=== PATIENT | male | born 1955 | race Caucasian/White ===

== ENCOUNTER 2016-06-02 08:11 | Inpatient (IN) | payer BC, OTHER ==
[2016-06-02] VITALS (12 sets, daily range): BP systolic 112–140; BP diastolic 68–82
[~2016-06-02] VITALS: Ht 180.3 cm; Wt 89.8 kg
--- NOTE | ~2016-06-02 | EXE ---
[facility] [address] [address] STRESS ECHOCARDIOGRAM Name: AUBREY SINHA Room #: 210-P ADM IN M.R.#: [id number] Admission: 06/02/16 Attend Phys: Avinash Ramirez Discharge: Date of : 53 Date of Service: 06/02/16 1418 Report #: [id number] THIS REPORT FOR: //name// APPROVED REPORT Exam: Stress Echocardiogram Reason for Exam: Chest pain Patient Location: Echo lab Stress Nurse: Arline Jett RN Room #: 210 HR: 52 bpm Medical History Allergies: No known drug allergies Cardiac Risk Factors: FHX of CAD Procedure The patient underwent an Exercise Stress Test using the Enzo Protocol. Blood pressure, heart rate, and EKG were monitored. An Echocardiogram was performed by meteorological technician in four stages in quad fashion. At peak stress, four selected images were obtained and placed side by side with resting images for comparison. Echo Enhancing Agent Indication: Endocardial border delineation Agent/Amount Used: Definity 4.00 cc Testing Details Test: Exercise stress testing was performed using a Enzo protocol. HR Resting HR: 52 bpm Max Heart Rate (APMHR): 158 bpm Max HR Achieved: 169 bpm Target HR (85% APMHR): 134 bpm % of APMHR: 106 Recovery HR: 84 bpm HR response to stress: Normal HR response to stress BP Resting BP: 138/80 mmHg Max BP: 180/80 mmHg Recovery BP: 160/78 mmHg ECG Resting ECG: Sinus Rhythm [facility] [address] [place] [address] STRESS ECHOCARDIOGRAM Name: AUBREY SINHA Room #: 210-P [facility] IN ..#: [id number] Admission: 06/02/16 Attend Phys: Avinash Ramirez Discharge: Date of : 53 Date of Service: 06/02/16 1418 Report #: [id number] Stress ECG: Anterior CT pattern ST Change: ST Elevation Arrhythmia: VPC's Recovery ECG: Sinus Rhythm Clinical Reason for Termination: Maximal effort Stress Symptoms: Chest pain Exercise duration: 9 min Exercise capacity: 10.4 METs Overall Exercise Capacity for Age: Normal Stress ECG Conclusion 1. Maximal stress test markedly positive for ischemia with development of anteroseptal and inferior injury pattern. 2. Echocardiocardiographic images very limited and non-diagnostic despite Definity administration. Pre-Stress Echo The resting Echocardiogram showed normal left ventricular contractility with an estimated Ejection Fraction of about >55%. Post-Stress Echo The stress Echocardiogram showed abnormal left ventricular contractility with an estimated Ejection Fraction of about 30-35%. Very limited post-imaging windows Conclusion Clinical Response: Ischemic Stress ECG Response: Ischemic Stress Echo Images: Indeterminant No prior study available for comparison. Other Information Study Quality: Fair Critical Notification Critical Value: Yes Physician Notified Date: 06/02/2016 Physician Name:Los Richardson M.D. <ELECTRONICALLY SIGNED> By: Zackary Richardson MD, [facility] 06/02/16 1418 1418 1418 Zackary Richardson MD, FAC /INF
--- NOTE | ~2016-06-02 | EKG ---
[address] [address] [place] [address] ELECTROCARDIOGRAM REPORT Name: AUBREY SINHA Room #: [facility] M..#: [id number] Admission: Attend Phys: Discharge: Date of : 53 Report #: [id number] THIS REPORT FOR: //name// 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
--- NOTE | ~2016-06-02 | EKG ---
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 : 1955 Requested By: Zackary Richardson Order Number: [id number] MD: Zackary Richardson Measurements Intervals [place] Rate: 63 P: 22 SD: 165 QRS: 35 QRSD: 95 T: 91 QT: 429 QTc: 440 Interpretive Statements Sinus rhythm Abnrm T, consider ischemia, anterolateral lds Compared to ECG 06/02/2016 08:23:17 No significant changes Electronically Signed On 06-04-2016 8:10:33 CDT by Zackary Richardson [email or web address] <ELECTRONICALLY SIGNED> By: Zackary Richardson MD, [facility] 06/04/16 0810 0647 0647 Zackary Richardson MD, [facility] /EPI
--- NOTE | ~2016-06-02 | EKG ---
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 : 1955 Requested By: Zackary Richardson Order Number: [id number] MD: Zackary Richardson Measurements Intervals [place] Rate: 65 P: 34 WV: 168 QRS: 28 QRSD: 95 T: 62 QT: 385 QTc: 401 Interpretive Statements Sinus rhythm Borderline T abnormalities, lateral leads Baseline wander in lead(s) V1,V3 Compared to ECG 06/02/2016 08:23:17 anterior T wave abnormality is less prominent Electronically Signed On 06-03-2016 8:31:23 CDT by Zackary Richardson [email or web address] <ELECTRONICALLY SIGNED> By: Zackary Richardson MD, FACC 06/03/16 0831 1406 1406 Zackary Richardson MD, [facility] /EPI
--- NOTE | ~2016-06-02 | 2DMMODE ---
[facility] [place] [address] 2 D/M-MODE ECHOCARDIOGRAM Name: AUBREY SINHA Room #: 210-P ADM IN M.R.#: [id number] Admission: 06/02/16 Attend Phys: Avinash Ramirez Discharge: Date of : 53 Date of Service: 06/02/16 1143 Report #: [id number] THIS REPORT FOR: //name// APPROVED REPORT Study performed: 06/02/2016 11:06:36 EXAM: Comprehensive 2D, Doppler, and color-flow Echocardiogram Patient Location: In-Patient Room #: 210 Blood Pressure: 138/80 mmHg HR: 55 bpm Other Information Study Quality: Good Indications Chest Pain 2D Dimensions RVDd: 39.86 mm LVEF(%): 51.81 (>50%) IVSd: 9.96 (7-11mm) LVOT Diam: 25.36 (18-24mm) LVDd: 56.70 mm PWd: 10.01 (7-11mm) Ascending Ao: 31.92 (22-36mm) LVDs: 41.46 (25-40mm) Aortic Root: 30.70 mm IVC: 22.00 mm Hood's LVEF: 51.81 % Volumes Left Atrial Volume (Systole) Single Plane 4CH: 44.32 mL Single Plane 2CH: 38.74 mL LA ESV Index: 21.00 mL/m2 Aortic Valve AoV Peak Jv.: 1.25 m/s AO Peak Gr.: 6.25 mmHg LVOT Max P.83 mmHg LVOT Max V: 0.98 m/s Mitral Valve E/A Ratio: 0.7 MV Decel. Time: 244.81 ms MV E Max Jv.: 0.45 m/s [facility] [place] [address] 2 D/M-MODE ECHOCARDIOGRAM Name: AUBREY SINHA Room #: 210-P [facility] IN M.R.#: [id number] Admission: 06/02/16 Attend Phys: Avinash Ramirez Discharge: Date of : 53 Date of Service: 06/02/16 1143 Report #: [id number] A Jv.: 0.66 m/s MV PHT: 70.99 ms Pulmonary Valve PV Peak Jv.: 0.81 m/s PV Peak Gr.: 2.62 mmHg Pulmonary Vein P Vein S: 68.1 m/s P Vein D: 35.8 m/s P Vein A Dur.: 25.7 m/s Tricuspid Valve RAP Estimate: 10.00 mmHg Left Ventricle The left ventricle is normal size. Cannot rule out hypokinesis of distal septum at apex. There is normal left ventricular wall thickness. The left ventricular systolic function is normal. The left ventricular ejection fraction is within the normal range. LVEF is 50-55%. Grade I - abnormal relaxation pattern. Right Ventricle The right ventricle is normal size. The right ventricular systolic function is normal. Atria The left atrium size is normal. The right atrium size is normal. Aortic Valve The aortic valve is normal in structure. Mild aortic regurgitation. There is no aortic valvular stenosis. Mitral Valve The mitral valve is normal in structure. No mitral regurgitation. No evidence of mitral valve stenosis. Tricuspid Valve The tricuspid valve is normal in structure. There is no tricuspid valve regurgitation noted. Pulmonic Valve The pulmonary valve is normal in structure. Trace pulmonic regurgitation. Great Vessels The aortic root is normal in size. IVC is dilated and collapses [facility] [address] [place] [address] 2 D/M-MODE ECHOCARDIOGRAM Name: AUBREY SINHA Room #: 210-P [facility] IN M.R.#: [id number] Admission: 06/02/16 Attend Phys: Avinash Ramirez Discharge: Date of : 53 Date of Service: 06/02/16 1143 Report #: [id number] >50% with inspiration. Pericardium There is no pericardial effusion. <Conclusion> The left ventricular ejection fraction is within the normal range. Cannot rule out hypokinesis of distal septum at apex. EF 55% Grade I - abnormal relaxation pattern. The aortic valve is normal in structure. Mild aortic regurgitation. The mitral valve is normal in structure. No mitral regurgitation. Pulmonary artery pressure could not be reliably ascertained. There is no pericardial effusion. <ELECTRONICALLY SIGNED> By: Zackary Richardson MD, FACC 06/02/16 1143 1143 1143 Zackary Richardson MD, FACC /INF
--- NOTE | ~2016-06-02 | D ---
[facility] [place] [address] DISCHARGE SUMMARY Name: RICK SINHA Room #: 210-P [facility] IN M.R.#: [id number] Admission: 06/02/16 Attend Phys: Rick Soler MD Discharge: 06/04/16 Date of : 53 Report #: [id number] THIS REPORT FOR: //name// CC: Rick Soler DATE OF SERVICE: 06/04/2016 FINAL DIAGNOSES: 1. Coronary artery disease. 2. Non-ST segment elevation myocardial infarction. PROCEDURES: 1. Treadmill stress test. 2. Cardiac catheterization. HOSPITAL COURSE: The patient was admitted with chest pain. Initial cardiac enzyme was negative. He was taken to this cardiac lab and stress test was performed. He developed ischemia on EKG and the procedure was stopped. Dr. Richardson diagnosed him with a non-Q wave ND. He was taken to the senior label specialist and a stent was placed across a proximal left anterior descending 75-95% stenosis just prior to the first septal perforating branch. There was some scattered disease in the circumflex, right coronary artery and posterior descending artery. As mentioned, 1 stent was placed. His left ventricular function was normal. He was placed on medical treatment thereafter and followed another 48 hours. He had no other interval complication. PHYSICAL EXAMINATION: GENERAL: On the day of discharge, he was awake and alert. VITAL SIGNS: Stable. He was up and walking the halls with no incident. LUNGS: Clear. HEART: Regular. ABDOMEN: Soft. EXTREMITIES: Showed no edema. DISPOSITION: To be discharged to home with cardiac diet and activity as tolerated. Follow up with Dr. Richardson in 3 weeks. Follow up with me in 6 weeks. MEDICATIONS: Will be metoprolol XL 50 mg a day, Lipitor 40 mg a day, lisinopril 10 mg a day, aspirin 325 mg a day, Effient 10 mg daily, allopurinol 300 mg daily and Tylenol as needed. <ELECTRONICALLY SIGNED> By: Rick Soler MD 06/05/16 0830 1054 1348 Rick Soler MD /nt
--- NOTE | ~2016-06-02 | H ---
[facility] [place] [address] HISTORY AND PHYSICAL Name: RICK SINHA Room #: 210-P ADM IN M.R.#: [id number] Admission: 06/02/16 Attend Phys: Rick Soler MD Discharge: Date of : 53 Report #: [id number] THIS REPORT FOR: //name// CC: Rick Soler DATE OF SERVICE: 06/02/2016 CHIEF COMPLAINT: Chest pain. HISTORY OF PRESENT ILLNESS: The patient is a 61-year-old gentleman who presented to the emergency room with chest pain. He said symptoms were sent substernal in nature and recurring off and on this morning. Even with some of exertion, he had some pain that radiated up to the top of his chest, but really nothing down his arms. He denied any shortness of breath or GI symptoms. PAST MEDICAL HISTORY: Gout and arthritis. PAST SURGICAL HISTORY: None. FAMILY HISTORY: Both of his parents had heart disease and are . His mother was diabetic. She had coronary disease. SOCIAL HISTORY: No smoking history. He does admit to daily alcohol use. ALLERGIES: None. MEDICATIONS: Allopurinol. REVIEW OF SYSTEMS: He denies headache, shortness of breath, abdominal pain, nausea, vomiting, diarrhea, constipation, dysuria or syncope. PHYSICAL EXAMINATION: VITAL SIGNS: Temperature 36.8, pulse 74, respirations 19, blood pressure 140/77 and O2 sat 96% on room air. GENERAL: He is awake and alert, lying on the stretcher in no distress. HEAD AND NECK: Unremarkable. LUNGS: Clear. HEART: Regular. ABDOMEN: Soft. Normoactive bowel sounds. EXTREMITIES: No edema. He has some joint deformity and swelling of the metacarpophalangeal joints on the hands. NEUROLOGIC: He is alert and oriented and intact. LABORATORY DATA: Lab review was unremarkable including negative troponin. Chest x-ray was negative and EKG showed sinus rhythm with nonspecific anterior [facility] [address] [place] [address] HISTORY AND PHYSICAL Name: RICK SINHA Room #: 210-P [facility] IN [facility].#: [id number] Admission: 06/02/16 Attend Phys: Rick Soler MD Discharge: Date of : 53 Report #: [id number] T-wave changes. ASSESSMENT: 1. Chest pain. 2. Osteoarthritis. 3. History of gout. PLAN: I have asked Dr. Richardson to see him in consultation and consider stress testing. Other home medications to continue. I will add an aspirin. If stable and negative workup, then anticipate early discharge. <ELECTRONICALLY SIGNED> By: Rick Soler MD 06/02/16 1459 1012 1030 Rick Soler MD /nt
--- NOTE | ~2016-06-02 | CATHLAB ---
[facility] [address] [employer] [address] INVASIVE PROCEDURE REPORT Name: AUBREY SINHA Room #: 210-P [facility] IN ..#: [id number] Admission: 06/02/16 Attend Phys: Avinash Ramirez Discharge: Date of : 53 Date of Service: 06/02/16 1407 Report #: [id number] THIS REPORT FOR: //name// CC: Aubrey Soler PROCEDURE: Left heart coronary angiography, angioplasty and stenting of the LAD. INDICATIONS: Non-Q-wave myocardial infarction. DESCRIPTION OF PROCEDURE: The potential benefits and risks of the procedure were discussed at length with the patient who understood. Full written and informed consent was obtained. The patient was brought into the catheterization suite where his right groin was prepped and draped in a sterile fashion. He was sedated with intravenous Versed. A 1% Xylocaine was used as local anesthetic. A 6-Mexican sheath was placed in the right femoral artery by the modified Seldinger technique. Left heart catheterization was performed with a 6-Mexican angled pigtail catheter. A single plain ventriculogram was performed in the PABLO view. Pullback gradients were measured across the aortic valve. Selective coronary angiography was performed with a 6-Mexican left and right 4 cm Carlos coronary catheter. All diagnostic catheters removed. Attention was turned to a subtotal narrowing within the proximal LAD. Heparin bolus was administered as well as a single bolus of Integrilin. He received aspirin and a loading dose 60 mg of Effient. A 6-Mexican EBU 3.5 Launcher guide catheter was placed over a wire with its tip at the ostium of the left main. A 0.014 inch Luge wire was used to traverse the proximal LAD stenosis, which was then predilated with a 2.5 x 20 mm Euphora balloon, which was inflated at 12 atmospheres for 25 seconds. This is a second inflation more proximally at 14 atmospheres for 30 seconds. This balloon was removed and the long proximal LAD stenosis was stented with a 3.0 x 34 mm Resolute medicated stent. Stent position confirmed and then deployed at 30 seconds at 16 atmospheres. The deploying balloon was removed and the stent was postdilated with a 3.25 x 15 mm NC Trek balloon, which was inflated on multiple occasions within the length of this upwards of 22 atmospheres. Additional images were obtained, all catheters removed. Hand injection was performed to the right groin sheath with placement of a Mynx device upon removal of the sheath. The patient remained in excellent condition at the conclusion of the procedure with good right groin hemostasis and intact distal pulses. RESULTS: Left heart hemodynamics: 1. Left ventricular systolic pressure of 130. 2. Left ventricular end diastolic pressure of 18. 3. Aortic valve, no gradient was present on pullback across the aortic valve, central aortic pressure of 134/76. [facility] [address] [place] [address] INVASIVE PROCEDURE REPORT Name: AUBREY SINHA Room #: 210-P [facility] IN M.R.#: [id number] Admission: 06/02/16 Attend Phys: Avinash Ramirez Discharge: Date of : 53 Date of Service: 06/02/16 1407 Report #: [id number] ANGIOGRAPHY: Left ventriculogram: Ventriculography demonstrated normal global left ventricular systolic function with minimal hypokinesis involving the inferior apex. Mitral regurgitation was absent. The ejection fraction was estimated at 60%. SELECTIVE CORONARY ANGIOGRAPHY: 1. Left main: Left main was normal. 2. Left anterior descending: Left anterior descending exhibited a variable 75-95% stenosis all before the first septal perforating branch. There was a tubular 60% stenosis just after the first septal perforating branch. 3. Circumflex: The circumflex was large, but nondominant. The circumflex gave rise to 2 marginal branches. The first marginal branch exhibited a proximal 50-60% stenosis. Second marginal branch, which was larger exhibited mild plaquing. 4. Right coronary: Right coronary was large and dominant. The right coronary exhibited mild 20-30% proximal plaquing. 5. Posterior descending: The posterior descending was moderately large and exhibited a 50-60% proximal stenosis. This will be followed closely. POSTANGIOPLASTY AND STENTING: The proximal LAD was ballooned and then stented with a 3.0 x 34 mm Resolute medicated stent postdilated close to 3.5 mm with a noncompliant balloon. A 0% residual stenosis remained with DYLON 3 flow maintained in the vessel. SUMMARY: 1. Normal global systolic function with minimal inferoapical hypokinesis, ejection fraction 60%. 2. Normal left main. 3. Severe, long proximal LAD stenosis successfully stented with a 3.0 x 34 mm Resolute medicated stent. 4. The circumflex was large, but nondominant. The first marginal branch exhibited a 50-60% stenosis. 5. The right coronary was dominant with mild proximal plaquing. There is a 50-60% proximal stenosis in the moderately large posterior descending branch. By: 1407 0708 Zackary Richardson MD, FACC /nt
[2016-06-02 08:50] LABS: HEMATOCRIT 45.2 % (42.0-52.0); HEMOGLOBIN 15.8 gm/dL (14.0-18.0); MCH 34.5 pg (26.0-34.0); MCV 98.4 fL (80.0-100.0); PLATELET COUNT 196 thou/uL (150-400); RBC 4.59 mil/uL (4.50-6.00); RDW 13.1 % (10.5-14.5); WBC 4.9 thou/uL (4.0-11.0)
[2016-06-02 08:56] LABS: MANUAL DIFF YES
[2016-06-02 09:01] LABS: ANION GAP 7 mmol/L (7-16); BUN 7 mg/dL (7-18); CALCIUM 8.4 mg/dL (8.5-10.1); CHLORIDE 105 mmol/L (98-107); CO2 27 mmol/L (21-32); CREATININE 0.8 mg/dL (0.7-1.3); GLUCOSE 112 mg/dL (74-106); POTASSIUM 4.1 mmol/L (3.5-5.1); SODIUM 139 mmol/L (136-145)
[2016-06-02 09:08] LABS: TROPONIN-I < 0.04 ng/mL (<0.04-0.07)
[2016-06-02 09:29] LABS: ABSOLUTE NEUTROPHILS 2.8 thou/uL (1.4-8.2); TOTAL CELL COUNT 100
[2016-06-02] MEDS ORDERED: ALLOPURINOL 30300 M2 PO (09:32)
[2016-06-02] MEDS ORDERED: INDOMETHACIN 5050 M1 (11:15)
[2016-06-02 13:33] LABS: CHOLESTEROL 169 mg/dL (<200); HDL CHOLESTEROL 48 mg/dL (>40); LDL CHOLESTEROL 95 mg/dL (<100); TC:HDL 3.5 Ratio (Not establshd); TRIGLYCERIDE 130 mg/dL (<150); VLDL 26 mg/dL (<40)
[2016-06-03 00:22] VITALS: BP 112/55
[2016-06-03 03:16] LABS: HEMOGLOBIN 14.6 gm/dL (14.0-18.0); MCH 34.6 pg (26.0-34.0); MCHC 34.7 g/dL (28.0-37.0); MCV 99.8 fL (80.0-100.0); RBC 4.2 mil/uL (4.50-6.00); RDW 13.1 % (10.5-14.5); WBC 6.6 thou/uL (4.0-11.0)
[2016-06-03 03:34] LABS: CALCIUM 8.3 mg/dL (8.5-10.1); POTASSIUM 3.6 mmol/L (3.5-5.1); TROPONIN-I 0.54 ng/mL (<0.04-0.07)
[2016-06-03 03:45] VITALS: BP 123/50
[2016-06-03 07:12] VITALS: BP 126/73
[2016-06-03] MEDS ORDERED: EFFIENT10 MG PO (08:01)
[2016-06-03 11:00] VITALS: BP 119/60
[2016-06-03 15:50] VITALS: BP 99/50
[2016-06-03 19:49] VITALS: BP 96/56
[2016-06-04 03:55] VITALS: BP 104/66
[2016-06-04 07:30] VITALS: BP 114/65
[2016-06-04] MEDS ORDERED: EFFIENT10 MG PO (07:30)
[2016-06-04] MEDS ORDERED: ASPIRIN325 PO (07:30)
[2016-06-04] MEDS ORDERED: BENAZEPRIL HCL10 MG PO (07:30)
[2016-06-04] MEDS ORDERED: METOPROLOL SUCC50 MG PO (07:30)
[2016-06-04] MEDS ORDERED: LIPITOR40 MG PO (07:30)
[2016-06-04 11:13] VITALS: BP 114/65
[2016-06-04 12:39] VITALS: BP 114/65
== END 2016-06-04 12:25 | disposition home or self-care (01) | DRG 247 ==
LOC: ER 08:11 → 2N 09:21 → EROBS 09:21 → 2N 10:02
PROVIDERS: Emergency Medicine; Internal Medicine; Nurse Practitioner Gerontology
PROC: B2111ZZ Fluoroscopy of Multiple Coronary Arteries using Low Osmolar Contrast (ICD-10-PCS; principal; 2016-06-02)
PROC: 4A023N7 Measurement of Cardiac Sampling and Pressure, Left Heart, Percutaneous Approach (ICD-10-PCS; principal; 2016-06-02)
PROC: 027035Z Dilation of Coronary Artery, One Artery with Two Drug-eluting Intraluminal Devices, Percutaneous Approach (ICD-10-PCS; principal; 2016-06-02)
PROC: B2151ZZ Fluoroscopy of Left Heart using Low Osmolar Contrast (ICD-10-PCS; principal; 2016-06-02)
DX: I21.4 Non-ST elevation (NSTEMI) myocardial infarction (principal); I25.10 Atherosclerotic heart disease of native coronary artery without angina pectoris; I25.5 Ischemic cardiomyopathy; I10 Essential (primary) hypertension; E78.5 Hyperlipidemia, unspecified; F10.10 Alcohol abuse, uncomplicated; Y90.9 Presence of alcohol in blood, level not specified; M19.90 Unspecified osteoarthritis, unspecified site; M10.9 Gout, unspecified; Z83.3 Family history of diabetes mellitus; Z82.49 Family history of ischemic heart disease and other diseases of the circulatory system; Z79.899 Other long term (current) drug therapy; Z72.89 Other problems related to lifestyle
CPT/HCPCS: 10081

== ENCOUNTER 2016-06-05 23:45 | Emergency (ER) | payer BC, OTHER ==
[~2016-06-05] VITALS: Ht 180.3 cm; Wt 90.7 kg
[~2016-06-05 23:45] MED LIST: ALLOPURINOL 30300 M2 PO; ASPIRIN325 PO; BENAZEPRIL HCL10 MG PO; EFFIENT10 MG PO; INDOMETHACIN 5050 M1; LIPITOR40 MG PO; METOPROLOL SUCC50 MG PO
== END 2016-06-06 01:24 | disposition home or self-care (01) ==
LOC: ER 23:45
DX: S30.1XXA Contusion of abdominal wall, initial encounter (principal); R59.1 Generalized enlarged lymph nodes; M10.9 Gout, unspecified; Z95.5 Presence of coronary angioplasty implant and graft; X58.XXXA Exposure to other specified factors, initial encounter; Y93.89 Activity, other specified; Y92.89 Other specified places as the place of occurrence of the external cause; Y99.8 Other external cause status

== ENCOUNTER → 2019-09-11 | Outpatient (CLI) | payer BC, OTHER | LOC: SJCVCIMAG 09:12 | PROVIDERS: ATTEND Internal Medicine | DX: I25.10 Atherosclerotic heart disease of native coronary artery without angina pectoris (principal); R00.0 Tachycardia, unspecified; Z95.5 Presence of coronary angioplasty implant and graft ==